=== PATIENT | female | born 1935 | race Caucasian/White ===

== ENCOUNTER → 2016-12-17 | Outpatient (CLI) | payer OTHER, MEDICARE | LOC: MMPC 11:11 | PROVIDERS: ATTEND Internal Medicine | DX: R41.3 Other amnesia (principal) ==

== ENCOUNTER → 2016-12-23 | Outpatient (CLI) | payer OTHER, MEDICARE ==
--- NOTE | 2016-12-23 15:00 | DI ---
MRI BRAIN SCAN WITHOUT CONTRAST, 12/23/2016 1:52 PM: Clinical History: Memory loss. Previous Exam: None at this facility. Sequences: Sagittal T1; Axial SHERMAN T2 and FLAIR. Axial diffusion weighted images with ADC mapping were also performed. Axial flow sensitive black blood (FSBB) scans are performed. The 4th, 3rd, and lateral ventricles are of normal size, shape, position, and contour for this patien t's age. There are no focal areas of abnormally increased or decreased signal intensity. There is no obvious evidence of small vessel ischemic disease. Susceptibility imaging shows no evidence of hemosi robbi deposits that would indicate previous micro-or macro hemorrhages. Diffusion weighted imaging wi th ADC mapping is normal. There is mild cerebellar and cerebral atrophy. There are no extracerebral m antels or shift of the midline structures. There is a mucous retention cyst in the floor of the right maxillary sinus with mucosal thickening of the left maxillary sinus. Readin. Normal MRI noncontrast brain scan for this patient's age. 2. Diffusion-weighted imaging with ADC mapping and susceptibility imaging are normal. 3. Mild cerebellar and cerebral atrophy.
== END ==
LOC: MRI 13:46
PROVIDERS: ATTEND Internal Medicine
DX: R41.3 Other amnesia (principal); G31.89 Other specified degenerative diseases of nervous system
CPT/HCPCS: 70551

== ENCOUNTER → 2017-01-07 | Outpatient (CLI) | payer OTHER, MEDICARE ==
[2017-01-09 14:05] LABS: SYPHILIS IGG WITH REFLEX Negative (Negative)
[2017-01-09 14:16] LABS: A/G RATIO 1.02 (()); ALB PEP SER 3.5 g/dL (3.4-4.7); ALP1 GLOB 0.2 g/dL (0.1-0.3); ALP2 GLOB 0.9 g/dL (0.6-1.0); GAMMA GLOBS 1.3 g/dL (0.6-1.6); TOT PRT SERUM 6.9 g/dL (6.3 - 7.9)
[2017-01-10 08:34] LABS: IMPRESSION SEE COMMENTS (())
== END ==
LOC: MOB LAB 13:41
PROVIDERS: ATTEND Internal Medicine
DX: E03.9 Hypothyroidism, unspecified (principal); M06.89 Other specified rheumatoid arthritis, multiple sites; F03.90 Unspecified dementia, unspecified severity, without behavioral disturbance, psychotic disturbance, mood disturbance, and anxiety
CPT/HCPCS: 82607; 83921; 84155; 84165; 84443; 84550; 85652; 86038; 86431; 86780

== ENCOUNTER → 2017-01-17 | Outpatient (CLI) | payer OTHER, MEDICARE | LOC: MMPC 11:11 | PROVIDERS: ATTEND Internal Medicine | DX: E53.8 Deficiency of other specified B group vitamins (principal) | CPT/HCPCS: G0463; J3420 ==

== ENCOUNTER → 2017-01-31 | Outpatient (CLI) | payer OTHER, MEDICARE | LOC: MMPC 11:11 | PROVIDERS: ATTEND Internal Medicine | DX: E53.8 Deficiency of other specified B group vitamins (principal) | CPT/HCPCS: G0463; J3420 ==

== ENCOUNTER → 2017-02-07 | Outpatient (CLI) | payer OTHER, MEDICARE | LOC: MMPC 11:11 | PROVIDERS: ATTEND Internal Medicine | DX: E53.8 Deficiency of other specified B group vitamins (principal) | CPT/HCPCS: G0463; J3420 ==

== ENCOUNTER → 2017-02-12 | Outpatient (CLI) | payer OTHER, MEDICARE ==
--- NOTE | 2017-02-12 16:11 | DI ---
XR CXR 2VW PA/LAT,02/12/2017 3:10 PM: Clinical History: Cough Previous Exam: None at this facility. Findings: PA and lateral views of the chest are obtained, and demonstrate silhouetting of the right hemidiaphra gm. This is seen predominantly within the posterior right lower lobe. The skeletal structures are unremarkable. The cardiomediastinum is also unremarkable. Impression: Right lower lobe pneumonia.
[2017-02-12 16:20] LABS: BASOPHILS # (AUTO) 0.05 10*3/UL; BASOPHILS % (AUTO) 0.4 % (0-1); EOSINOPHILS # (AUTO) 0.05 10*3/UL; EOSINOPHILS % (AUTO) 0.4 % (0-8); HEMOGLOBIN 11.8 g/dL (12.0-16.0); LYMPHOCYTES # (AUTO) 1.34 10*3/uL; MEAN CORPUSCULAR HEMOGLOBIN 29.8 PG (27-31); MEAN CORPUSCULAR HGB CONC 33.7 g/dL (33-37); MEAN CORPUSCULAR VOLUME 88.4 FL (81-99); MEAN PLATELET VOLUME 9.6 FL (7.4-12.2); NEUTROPHILS # (AUTO) 8.85 10*3/UL; RED BLOOD COUNT 3.96 10^6/uL (4.20-5.40)
[2017-02-12 16:22] LABS: PLATELET MORPHOLOGY COMMENT NORMAL MORPHOLOGY (NORM); RBC MORPHOLOGY COMMENT NORMAL MORPHOLOGY (NORM); WBC MORPHOLOGY COMMENT NORMAL MORPHOLOGY (NORM)
[2017-02-12 16:31] LABS: BUN/CREATININE RATIO 24.28 (6-20); CALCIUM 9.1 mg/dL (8.7-10.7); SERUM ALBUMIN 3.6 g/dL (3.5-4.8)
== END ==
LOC: MOB RAD 15:11
PROVIDERS: ATTEND Physician Assistant
DX: R05 Cough (principal); J18.9 Pneumonia, unspecified organism
CPT/HCPCS: 36415; 71020; 80053; 85025; 87040

== ENCOUNTER → 2017-02-13 | Outpatient (CLI) | payer OTHER, MEDICARE | LOC: LAB 09:10 | PROVIDERS: ATTEND Physician Assistant | DX: J18.9 Pneumonia, unspecified organism (principal) | CPT/HCPCS: 87070; 87205 ==

== ENCOUNTER → 2017-02-18 | Outpatient (CLI) | payer OTHER, MEDICARE | LOC: MMPC 11:11 | PROVIDERS: ATTEND Nurse Practitioner | DX: J18.9 Pneumonia, unspecified organism (principal) | CPT/HCPCS: 99214; G0463 ==

== ENCOUNTER → 2017-02-23 | Outpatient (CLI) | payer OTHER, MEDICARE ==
[2017-02-23 10:24] LABS: BUN/CREATININE RATIO 28.57 (6-20); CALCIUM 9.3 mg/dL (8.7-10.7)
== END ==
LOC: LAB 10:06
PROVIDERS: ATTEND Internal Medicine
DX: M81.0 Age-related osteoporosis without current pathological fracture (principal)
CPT/HCPCS: 36415; 80048

== ENCOUNTER → 2017-02-25 | Outpatient (CLI) | payer OTHER, MEDICARE | LOC: MMPC 11:11 | PROVIDERS: ATTEND Internal Medicine | DX: J18.1 Lobar pneumonia, unspecified organism (principal); M81.0 Age-related osteoporosis without current pathological fracture; R41.3 Other amnesia | CPT/HCPCS: 99214; G0463; J0897 ==

== ENCOUNTER → 2017-03-07 | Outpatient (CLI) | payer OTHER, MEDICARE | LOC: MMPC 11:11 | PROVIDERS: ATTEND Internal Medicine | DX: E53.8 Deficiency of other specified B group vitamins (principal) | CPT/HCPCS: G0463; J3420 ==

== ENCOUNTER → 2017-07-07 | Outpatient (CLI) | payer OTHER, MEDICARE ==
[2017-07-07 08:23] LABS: EOSINOPHILS # (AUTO) 0.21 10*3/UL; EOSINOPHILS % (AUTO) 4.3 % (0-8); HEMATOCRIT 42.2 % (37.0-47.0); LYMPHOCYTES # (AUTO) 1.48 10*3/uL; MEAN CORPUSCULAR HEMOGLOBIN 29.5 PG (27-31); MEAN CORPUSCULAR HGB CONC 33.2 g/dL (33-37); MEAN CORPUSCULAR VOLUME 88.8 FL (81-99); MEAN PLATELET VOLUME 9.8 FL (7.4-12.2); MONOCYTES # (AUTO) 0.66 10*3/UL (0.3-0.8); MONOCYTES % (AUTO) 13.4 % (5-15); NEUTROPHILS # (AUTO) 2.49 10*3/UL; NEUTROPHILS % (AUTO) 50.3 % (50-80); RED BLOOD COUNT 4.75 10^6/uL (4.20-5.40)
[2017-07-07 08:39] LABS: CHOL/HDL RATIO 1.97 RATIO (0-4.0)
[2017-07-07 09:30] LABS: PLATELET MORPHOLOGY COMMENT NORMAL MORPHOLOGY (NORM); RBC MORPHOLOGY COMMENT NORMAL MORPHOLOGY (NORM); WBC MORPHOLOGY COMMENT NORMAL MORPHOLOGY (NORM)
[2017-07-07 12:08] LABS: BUN/CREATININE RATIO 22.5 (6-20); CALCIUM 9.4 mg/dL (8.7-10.7); SERUM ALBUMIN 4.3 g/dL (3.5-4.8)
== END ==
LOC: LAB 08:05
PROVIDERS: ATTEND Internal Medicine
DX: E03.9 Hypothyroidism, unspecified (principal); E78.5 Hyperlipidemia, unspecified; M81.0 Age-related osteoporosis without current pathological fracture
CPT/HCPCS: 36415; 80053; 80061; 82550; 84443; 85025